=== PATIENT | female | born 1995 | race Caucasian/White ===

== ENCOUNTER 2016-11-29 11:27 | Emergency (ER) | payer OTHER ==
[2016-11-29 12:20] LABS: #Basophils 0.1 thou/uL (0.0-0.2); #Eosinphils 0.1 thou/uL (0.0-0.7); #Lymphocytes 1.5 thou/uL (1.20-3.40); #Monocytes 0.4 thou/uL (0.11-0.59); #Neutrophils 12.4 thou/uL (1.40-6.50); %Basophils 0.4 % (0.0-1.0); %Eosinophils 0.4 % (0.0-10.0); %Lymphocytes 10.1 % (28.0-48.0); %Monocytes 3.1 % (0.0-4.0); Hematocrit 38.6 % (36.0-47.0); Mean Platelet Volume 6.1 fL (7.4-10.4); Red Blood Cell (RBC) Count 4.44 mill/uL (4.00-5.20); White Blood Cell (WBC) Count 14.4 thou/uL (4.8-10.8)
[2016-11-29 12:44] LABS: ALT (SGPT) 14 U/L (8-55); AST (SGOT) 21 U/L (5-34); Alkaline Phosphatase 60 U/L (40-150); Anion Gap 17 mmol/L (10-20); BUN (Urea Nitrogen) 12 mg/dL (7.0-18.7); Bilirubin, Total 0.7 mg/dL (0.2-1.2); CK (CPK) 90 U/L (29-168); Calc. Creatinine Clearance 0 mL/min (70-130); Calcium 9.5 mg/dL (7.8-10.44); Carbon Dioxide 21 mmol/L (22-29); Chloride 102 mmol/L (98-107); Estimated GFR-MDRD 76; Globulin 3.1 g/dL (2.4-3.5); Lipase 21 U/L (8-78); Protein, Total 7.1 g/dL (6.0-8.3)
[2016-11-29 12:49] LABS: Troponin I Less than 0.010 ng/mL (< 0.028)
[2016-11-29] MEDS ORDERED: ALPRAZolam 0.5 MG TAB ONE (13:18)
[2016-11-29] MEDS ORDERED: Ibuprofen 800 MG TAB ONE (13:18)
--- NOTE | 2016-11-29 14:05 | RAD ---
CHEST 1 VIEW: Date: 11/29/16 HISTORY: Chest pain, shortness of breath. COMPARISON: Chest 2 views dated 04/21/16. FINDINGS: Lungs are clear. No pneumothorax or effusion. Cardiac silhouette and mediastinal contour within norm al limits. IMPRESSION: No acute intrathoracic abnormality. POS: [id number]
[2016-11-29 14:07] LABS: Bilirubin Negative (Negative); Blood, Urine Trace (Negative); Glucose, Urine (Dipstick) Negative (Negative); Ketone, Urine 80 mg/dL (Negative); Nitrite Negative (Negative); Protein, Urine (Dipstick) Negative (Neg-Trace); Urobilinogen 0.2 mg/dL (0.2-1.0)
[2016-11-29 14:09] LABS: Bacteria/HPF Rare-Few HPF (None Seen); Hyaline Casts/LPF 0-3 HYALINE CAST LPF (0-3 Hyaline); Squamous Epithelial 0-3 HPF (0-3); WBC/HPF 21-50 HPF (0-3)
== END 2016-11-29 16:40 | disposition home or self-care (01) ==
LOC: ERS 11:27
DX: F43.9 Reaction to severe stress, unspecified (principal); D72.829 Elevated white blood cell count, unspecified; J45.909 Unspecified asthma, uncomplicated; F41.9 Anxiety disorder, unspecified; F32.9 Major depressive disorder, single episode, unspecified
CPT/HCPCS: 36415; 71010; 80053; 81003; 81015; 82550; 82553; 83690; 84484; 84703; 85025; 85379; 87081; 87430; 93005; 96360

== ENCOUNTER 2020-12-30 14:53 | Emergency (ER) | payer MEDICAID ==
[2020-12-30] MEDS ORDERED: Lidocaine 1% PF 5 ML VIAL ONE (15:08)
== END 2020-12-30 15:54 | disposition home or self-care (01) ==
LOC: ERS 14:53
DX: S61.216A Laceration without foreign body of right little finger without damage to nail, initial encounter (principal); W26.0XXA Contact with knife, initial encounter
CPT/HCPCS: 12001

== ENCOUNTER 2021-01-18 09:08 | Emergency (ER) | payer MEDICAID, SELFPAY ==
[2021-01-18 09:40] LABS: #Lymphocytes 0.7 thou/uL (1.20-3.40); #Monocytes 0.3 thou/uL (0.11-0.59); #Neutrophils 3.9 thou/uL (1.40-6.50); %Basophils 0.1 % (0.0-1.0); %Eosinophils 0.8 % (0.0-10.0); %Lymphocytes 13.5 % (21.0-51.0); %Monocytes 6.1 % (0.0-10.0); %Neutrophils 79.6 % (42.0-75.0); Hemoglobin 14.5 g/dL (12.0-16.0); Mean Corpuscular HGB CONC 34.5 g/dL (32.0-36.0); Mean Corpuscular Hemoglobin 30.3 pg (27.0-31.0); Mean Corpuscular Volume 87.9 fL (78.0-98.0); Mean Platelet Volume 6.1 fL (7.4-10.4); Platelet Count 280 thou/uL (130-400); RBC Distribution Width 11.2 % (11.5-14.5); Red Blood Cell (RBC) Count 4.77 mill/uL (4.20-5.40); White Blood Cell (WBC) Count 4.8 thou/uL (4.8-10.8)
[2021-01-18] MEDS ORDERED: Ketorolac Tromethamine 30 MG/ML VIAL ONE (09:51)
[2021-01-18] MEDS ORDERED: Promethazine HCl 25 MG/ML VIAL ONE (09:51)
[2021-01-18 10:10] LABS: Albumin 4.1 g/dL (3.5-5.0); Anion Gap 10 mmol/L (10-20); Bilirubin, Total 0.9 mg/dL (0.2-1.2); Carbon Dioxide 25 mmol/L (22-29); Chloride 103 mmol/L (98-107); Glucose 103 mg/dL (70-105); Potassium 3.7 mmol/L (3.5-5.1); Protein, Total 7.1 g/dL (6.0-8.3); Sodium 134 mmol/L (136-145)
[2021-01-18 10:11] LABS: Alkaline Phosphatase 42 U/L (40-110)
[2021-01-18 10:17] LABS: ALT (SGPT) 20 U/L (8-55); AST (SGOT) 21 U/L (5-34); BUN (Urea Nitrogen) 7 mg/dL (7.0-18.7); Calc. Creatinine Clearance 0 mL/min (70-130); Lipase 34 U/L (8-78)
[2021-01-18 10:30] LABS: Bilirubin Negative (Negative); Blood, Urine 2+ (Negative); Clarity Turbid (Clear); Glucose, Urine (Dipstick) Normal (Negative); Ketone, Urine Negative (Negative); Leukocyte 75 Leu/uL (Negative); Nitrite Negative (Negative); Protein, Urine (Dipstick) 20 mg/dL (Neg-Trace); Specific Gravity, Urine 1.018 (1.002-1.036); Squamous Epithelial 21-50 HPF (0-3); Urobilinogen Normal mg/dL (Less than 2)
[2021-01-18 10:36] LABS: BHCG - Serum Negative (NEGATIVE); Pregs Control Background? CLEAR/WHITE (CLR/WHITE); Pregs Control Bar Appear? YES (CONTROL BAR)
[2021-01-18 10:43] LABS: Bacteria/HPF 2+ HPF (None Seen)
[2021-01-18 12:18] LABS: Magnesium 1.8 mg/dL (1.6-2.6)
[2021-01-18] MEDS ORDERED: Iopamidol-370 76% 500 ML 1 ML ONE (12:40)
[2021-01-22 21:36] LABS: Norovirus GI Negative (Negative); Norovirus GII Positive (Negative)
== END 2021-01-18 12:20 | disposition home or self-care (01) ==
LOC: ERS 09:08
DX: R10.30 Lower abdominal pain, unspecified (principal); R19.7 Diarrhea, unspecified; J45.909 Unspecified asthma, uncomplicated
CPT/HCPCS: 36415; 74177; 80053; 81003; 81015; 83605; 83630; 83690; 83735; 84703; 85025; 87045; 87046; 87086; 87324; 87427; 87449; 87493; 87798; 94760; 96372; 96374; 96375; J0500; J1885; J2550; Q9967

== ENCOUNTER 2021-08-05 12:34 | Outpatient (CLI) | payer OTHER | END 2021-08-05 12:35 | disposition home or self-care (01) | LOC: BICULT 12:34 | PROVIDERS: ATTEND Registered Nurse | DX: R10.30 Lower abdominal pain, unspecified (principal) | CPT/HCPCS: 76700; 76856; 93976 ==

== ENCOUNTER 2023-11-18 21:02 | Emergency (ER) | payer OTHER ==
[~2023-11-18 21:02] MED LIST: Iopamidol-370 76% 500 ML MDV (1 ML CHARGE) ONE
[2023-11-18 21:29] LABS: #Basophils 0.07 10x3/uL (0.0-0.2); %Lymphocytes 39.5 % (21.0-51.0); %Neutrophils 51.2 % (42.0-75.0); Hematocrit 39.7 % (36.0-47.0); Mean Corpuscular HGB CONC 35.3 g/dL (32.0-36.0); Mean Corpuscular Hemoglobin 30.8 pg (27.0-31.0); Mean Corpuscular Volume 87.4 fL (78.0-98.0); Mean Platelet Volume 8.9 fL (7.4-10.4); Platelet Count 296 10x3/uL (130-400); Red Blood Cell (RBC) Count 4.54 mill/uL (4.20-5.40)
[2023-11-18 21:57] LABS: Bacteria/HPF None Seen HPF (None Seen); Bilirubin Negative (Negative); Blood, Urine Negative (Negative); CAUTI Indications for Culture Pelvic or flank pain; Clarity Clear (Clear); Glucose, Urine (Dipstick) Normal (Negative); Ketone, Urine Negative (Negative); Leukocyte Negative Leu/uL (Negative); Nitrite Negative (Negative); Protein, Urine (Dipstick) Negative (Neg-Trace); RBC/HPF 0-3 HPF (0-3); Specific Gravity, Urine 1.004 (1.002-1.036); Squamous Epithelial 0-3 HPF (0-3); Urobilinogen Normal mg/dL (Less than 2); WBC/HPF 0-3 HPF (0-3)
[2023-11-18 21:57] LABS: ALT (SGPT) 11 U/L (8-55); AST (SGOT) 18 U/L (5-34); Albumin 4.4 g/dL (3.5-5.0); Alkaline Phosphatase 58 U/L (40-110); Anion Gap 16 mmol/L (10-20); BUN (Urea Nitrogen) 14 mg/dL (7.0-18.7); Bilirubin, Total 0.5 mg/dL (0.2-1.2); Calc. Creatinine Clearance 0 mL/min (70-130); Calcium 9.6 mg/dL (7.8-10.44); Carbon Dioxide 23 mmol/L (22-29); Chloride 106 mmol/L (98-107); Estimated GFR 74; Globulin 2.9 g/dL (2.4-3.5); Glucose 101 mg/dL (70-105); Lipase 31 U/L (8-78); Potassium 4.1 mmol/L (3.5-5.1); Protein, Total 7.3 g/dL (6.0-8.3); Sodium 141 mmol/L (136-145)
[2023-11-18 21:59] LABS: BHCG - Serum Negative (NEGATIVE); Pregs Control Background? CLEAR/WHITE (CLR/WHITE); Pregs Control Bar Appear? YES (CONTROL BAR)
[2023-11-18 22:03] LABS: Urine Culture Reflex No No
[2023-11-18] MEDS ORDERED: diphenhydrAMINE 50 MG/ML VIAL ONE (22:06)
[2023-11-18] MEDS ORDERED: Famotidine/PF 20 mg/2ml Vial ONE (22:07)
[2023-11-18] MEDS ORDERED: Ketorolac Tromethamine 30 MG (1 mL) VIAL ONE (22:07)
[2023-11-18] MEDS ORDERED: Ondansetron PF 4 MG/2 ML Vial ONE (22:07)
[2023-11-18] MEDS ORDERED: methylPREDNISolone Sod Succ 40 MG VIAL ONE (22:07)
== END 2023-11-19 00:23 | disposition home or self-care (01) ==
LOC: ERS 21:02
DX: R10.30 Lower abdominal pain, unspecified (principal); R35.0 Frequency of micturition
CPT/HCPCS: 36415; 74177; 80053; 81001; 83690; 84703; 85025; 87086; 93005; 96361; 96374; 96375; J1200; J1885; J2405; J2919; J3490; Q9967

== ENCOUNTER 2023-12-18 07:42 | Outpatient (CLI) | payer OTHER | END 2023-12-18 07:43 | disposition home or self-care (01) | LOC: BICULT 07:42 | PROVIDERS: ATTEND Student in an Organized Health Care Education/Training Program | DX: K82.9 Disease of gallbladder, unspecified (principal) | CPT/HCPCS: 76705 ==

== ENCOUNTER 2024-02-01 22:52 | Emergency (ER) | payer OTHER ==
[2024-02-02 00:26] LABS: #Basophils Less than 0.03 10x3/uL (0.0-0.2); #Eosinophils Less than 0.03 10x3/uL (0.0-0.7); %Basophils 0.4 % (0.0-1.0); %Eosinophils 0.4 % (0.0-10.0); %Lymphocytes 5.3 % (21.0-51.0); %Monocytes 7.3 % (0.0-10.0); Hematocrit 40.3 % (36.0-47.0); Hemoglobin 14.7 g/dL (12.0-16.0); Mean Corpuscular HGB CONC 36.5 g/dL (32.0-36.0); Mean Corpuscular Hemoglobin 30.6 pg (27.0-31.0); Mean Corpuscular Volume 83.8 fL (78.0-98.0); Mean Platelet Volume 8.8 fL (7.4-10.4); Platelet Count 233 10x3/uL (130-400); RBC Distribution Width 11.6 % (11.5-14.5); Red Blood Cell (RBC) Count 4.81 mill/uL (4.20-5.40)
[2024-02-02 00:39] LABS: Prothrombin Time 13.3 sec (12.0-14.7)
[2024-02-02 00:40] LABS: PTT 23.3 sec (22.9-36.1)
[2024-02-02 00:43] LABS: D-Dimer Test Less than 0.27 mcg/mL (0.27-0.43)
[2024-02-02] MEDS ORDERED: Ketorolac Tromethamine 30 MG (1 mL) VIAL ONE (00:45)
[2024-02-02 00:54] LABS: ALT (SGPT) 9 U/L (8-55); AST (SGOT) 18 U/L (5-34); Albumin 4.4 g/dL (3.5-5.0); Alkaline Phosphatase 56 U/L (40-110); Anion Gap 16 mmol/L (10-20); BUN (Urea Nitrogen) 12 mg/dL (7.0-18.7); Bilirubin, Total 0.8 mg/dL (0.2-1.2); Calc. Creatinine Clearance 0 mL/min (70-130); Calcium 9.3 mg/dL (7.8-10.44); Carbon Dioxide 20 mmol/L (22-29); Chloride 103 mmol/L (98-107); Estimated GFR 83; Globulin 2.8 g/dL (2.4-3.5); Glucose 103 mg/dL (70-105); Potassium 3.6 mmol/L (3.5-5.1); Protein, Total 7.2 g/dL (6.0-8.3); Sodium 135 mmol/L (136-145)
[2024-02-02 00:57] LABS: Bacteria/HPF 3+ HPF (None Seen); Bilirubin Negative (Negative); Blood, Urine Trace (Negative); CAUTI Indications for Culture Fever or rigors; Clarity Clear (Clear); Glucose, Urine (Dipstick) Normal (Negative); Ketone, Urine 40 mg/dL (Negative); Leukocyte Negative Leu/uL (Negative); Nitrite Negative (Negative); Protein, Urine (Dipstick) Negative (Neg-Trace); RBC/HPF 0-3 HPF (0-3); Specific Gravity, Urine 1.007 (1.002-1.036); Urobilinogen Normal mg/dL (Less than 2); WBC/HPF 0-3 HPF (0-3); pH, Urine 7.5 (5.0-9.0)
[2024-02-02 00:59] LABS: Urine Culture Reflex No No
[2024-02-02 00:59] LABS: Troponin I Less than 0.010 ng/mL (< 0.028)
[2024-02-02 01:11] LABS: BHCG - Serum Negative (NEGATIVE); Pregs Control Background? CLEAR/WHITE (CLR/WHITE); Pregs Control Bar Appear? YES (CONTROL BAR)
[2024-02-02] MEDS ORDERED: diphenhydrAMINE 50 MG/ML VIAL ONE (02:03)
[2024-02-02] MEDS ORDERED: methylPREDNISolone Sod Succ/PF 125 MG/2 ML VIAL ONE (02:04)
[2024-02-02] MEDS ORDERED: Famotidine/PF 20 mg/2ml Vial ONE (02:04)
== END 2024-02-02 06:20 | disposition home or self-care (01) ==
LOC: ERS 22:52
DX: B34.9 Viral infection, unspecified (principal)
CPT/HCPCS: 36415; 71046; 74177; 80053; 81001; 83605; 84484; 84703; 85025; 85379; 85610; 85730; 87040; 87081; 87428; 87430; 93005; 96374; 96375; J1200; J1885; J2919; J3490

== ENCOUNTER 2024-09-28 15:25 | Outpatient (CLI) | payer OTHER | END 2024-09-28 15:26 | disposition home or self-care (01) | LOC: SCSRAD 15:25 | DX: M54.50 Low back pain, unspecified (principal) | CPT/HCPCS: 72110 ==